=== PATIENT | female | born 1980 | race African-American/Black ===

== ENCOUNTER 2016-04-07 14:17 | Emergency (ER) | payer OTHER ==
[~2016-04-07] VITALS: Ht 170.2 cm; Wt 86.2 kg
[2016-04-07] MEDS ORDERED: ATIVAN0.5 MG ORAL (16:07)
[2016-04-07 16:10] VITALS: BP 111/76
[2016-04-07 16:12] VITALS: BP 111/76
--- NOTE | 2016-04-07 23:30 | Emergency Room Report ---
History of Present Illness General Chief Complaint: General Complaint Source: Patient Present Illness HPI The patient is a 36-year-old female presenting with left-sided chest pain which began one week prior after the loss of her mother. The patient denies any medical history including cardiac history. The pain is described as a 6/10 dull ache to the left chest and does not radiate. No known provoking factors. The patient believes this may be due to anxiety although the patient has never been diagnosed with any psychiatric conditions. Pain is constant. The patient denies any numbness or tingling, shortness of breath, diaphoresis Allergies: Coded Allergies: No Known Allergies (Unverified , 04/07/16) Patient History Past Medical History: see triage record Last Menstrual Period: 04/05/16 Now: No Reviewed Nursing Documentation: PMH: Agreed, PSxH: Agreed Nursing Documentation-PMH Past Medical History: No History, Except For Review of Systems All Other Systems: negative except mentioned in HPI Physical Exam Vital Signs Date Time Temp Pulse Resp B/P Pulse Ox O2 Delivery O2 Flow Rate FiO2 04/07/16 14:32 98.1 76 16 111/76 97 Sp02 EP Interpretation: reviewed, normal General Appearance: no apparent distress, alert, GCS 15, non-toxic Head: normocephalic, atraumatic Eyes: bilateral eye PERRL, bilateral eye normal inspection ENT: hearing grossly normal, normal pharynx, no angioedema, normal voice Neck: full range of motion, supple/symm/no masses Respiratory: chest non-tender, lungs clear, normal breath sounds, no wheezing, speaking full sentences Cardiovascular #1: normal inspection, regular rate, rhythm, no edema, no murmur , no rub, normal capillary refill Cardiovascular #2: 2+ carotid (R), 2+ carotid (L), 2+ radial (R), 2+ radial (L) , 2+ dorsalis pedis (R), 2+ dorsalis pedis (L) Gastrointestinal: normal bowel sounds, non tender, soft, non-distended, no guarding, no rebound Rectal: deferred Genitourinary: normal inspection, no CVA tenderness Musculoskeletal: back normal, gait/station normal, normal range of motion, non- tender Neurologic: alert, oriented x3, responsive, motor strength/tone normal, sensory intact, speech normal Psychiatric: judgement/insight normal, memory normal, mood/affect normal, no suicidal/homicidal ideation Reflexes: 3+ bicep (R), 3+ bicep (L), 3+ tricep (R), 3+ tricep (L), 3+ knee (R) , 3+ knee (L) Skin: normal color, no rash, warm/dry, well hydrated Lymphatic: no adenopathy Medical Decision Making PA Attestation Dr. Ruiz is my supervising physician. Patient management was discussed with my supervising physician Diagnostic Impression: Primary Impression: Anxiety ER Course The patient is a 36-year-old female presenting with left-sided chest pain which began one week prior after the loss of her mother. Differential diagnosis include but not limited to ACS, PE, anxiety, GERD PE: No apparent distress. A&Ox3 PERRL. EOMI. Normal mentation. RRR. No MRG Lungs CTA bilat Abdomen: Normal appearance. Non distended. No ecchymosis. Normal BS. Non TTP. No McBurney point tenderness. No guarding. Skin is warm and dry, no rashes. EKG was reviewed and read with my supervising physician. No acute ST segment changes are seen. Normal rate and rhythm. No acute changes. The patient will be given a short prescription for Ativan and will see primary care physician for further care with possible referral to see psychiatrist. ER precautions are given EKG Diagnostic Results Rate: normal Rhythm: NSR - 66 ST Segments: no acute changes ASA given to the pt in ED: No PA Scribe Text EKG was reviewed and read with my supervising physician. No acute ST segment changes are seen. Normal rate and rhythm. No acute changes. Last Vital Signs Date Time Temp Pulse Resp B/P Pulse Ox O2 Delivery O2 Flow Rate FiO2 04/07/16 16:12 98.1 76 16 111/76 97 Status: improved Disposition: HOME, SELF-CARE Condition: Improved Scripts Lorazepam* (ATIVAN*) 0.5 Mg Tablet 0.5 MG ORAL DAILY, #7 TAB Prov: CARLOS REA 04/07/16 Referrals: [facility]ERR[facility] (PCP) Patient Instructions: Depression, Adult Additional Instructions: I discussed my findings with the patient. All questions and concerns have been answered. Treatment and medication compliance have been addressed. I advised the patient that they need to follow up with PMD in 3-5 days. Return to ED if symptoms worsen, new symptoms arise, or if needed for any reason. Patient verbalized understanding of discharge instructions. CARLOS REA Apr 07, 2016 23:30
--- NOTE | 2016-04-09 15:17 | Cardiology Report ---
APPROVED REPORT EKG Measurement Heart [id number] Normal sinus rhythm Incomplete right bundle branch block Borderline ECG
== END 2016-04-07 19:02 | disposition home or self-care (01) ==
LOC: EMR 16:30
DX: F41.9 Anxiety disorder, unspecified (principal)
CPT/HCPCS: 93005; 99283

== ENCOUNTER 2016-04-14 11:26 | Emergency (ER) | payer OTHER ==
[~2016-04-14] VITALS: Ht 172.7 cm; Wt 86.2 kg
[~2016-04-14 11:26] MED LIST: ATIVAN0.5 MG ORAL
[2016-04-14 11:55] VITALS: BP 117/68
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
[2016-04-14] MEDS ORDERED: IBUPROFEN400 MG ORAL (14:03)
--- NOTE | 2016-04-14 14:09 | Diagnostic Imaging Report ---
Indication: Pain 3 views of the left knee were obtained. Findings: No acute fracture, malalignment, or joint effusion are identified. Joint space is relatively well-maintained. Bone mineralization is within normal limits for age. Impression: Negative exam
--- NOTE | 2016-04-14 14:11 | Diagnostic Imaging Report ---
Indication: Scrotal pain Comparison: None Findings: 2 views of the sternum obtained. No acute fracture identified. Impression: Negative study
[2016-04-14 14:27] VITALS: BP 120/66
== END 2016-04-14 14:29 | disposition home or self-care (01) ==
LOC: EMR 12:15
DX: S20.20XA Contusion of thorax, unspecified, initial encounter (principal); S80.02XA Contusion of left knee, initial encounter; V43.62XA Car passenger injured in collision with other type car in traffic accident, initial encounter; Y92.410 Unspecified street and highway as the place of occurrence of the external cause; Y99.8 Other external cause status
CPT/HCPCS: 71120; 99284